=== PATIENT | male | born 1975 | race Caucasian/White ===

== ENCOUNTER → 2018-03-02 | Outpatient (CLI) | payer OTHER ==
[2018-03-02 13:27] LABS: BASOPHILS # (AUTO) 0.02 x10^3/uL (0-0.1); BASOPHILS % (AUTO) 0 % (0-1); EOSINOPHILS # (AUTO) 0.14 x10^3/uL (0-0.4); EOSINOPHILS % (AUTO) 2 % (1-7); LYMPHOCYTES # (AUTO) 1.91 x10^3/uL (1-3.4); LYMPHOCYTES % (AUTO) 28 % (22-44); MD NO; MEAN CORPUSCULAR HEMOGLOBIN 31.3 pg (27.5-34.5); MEAN CORPUSCULAR HGB CONC 33.7 g/dL (33.2-36.2); MEAN CORPUSCULAR VOLUME 93.2 fL (81-97); MEAN PLATELET VOLUME 6.8 fL (7.4-10.4); MONOCYTES # (AUTO) 0.76 x10^3/uL (0.2-0.8); MONOCYTES % (AUTO) 11 % (2-9); NEUTROPHILS # (AUTO) 3.91 x10^3/uL (1.8-6.8); NEUTROPHILS % (AUTO) 58 % (42-75); PLATELET COUNT 234 x10^3/uL (130-400); RED BLOOD COUNT 4.49 x10^6/uL (4.38-5.82); RED CELL DISTRIBUTION WIDTH 13.6 % (9.4-14.8)
[2018-03-02 13:30] LABS: HCT (SEDRATE) 41.8 % (39.2-51.8)
== END ==
LOC: LAB 13:10
PROVIDERS: ATTEND Orthopaedic Surgery
DX: S82.201 Unspecified fracture of shaft of right tibia (principal)
CPT/HCPCS: 36415; 85025; 85651; 86140

== ENCOUNTER → 2018-04-02 | Outpatient (CLI) | payer OTHER ==
[~2018-04-02] MED LIST: No meds per pt.
[2018-04-02 16:19] LABS: BASOPHILS # (AUTO) 0.03 x10^3/uL (0-0.1); BASOPHILS % (AUTO) 0 % (0-1); EOSINOPHILS # (AUTO) 0.17 x10^3/uL (0-0.4); EOSINOPHILS % (AUTO) 2 % (1-7); LYMPHOCYTES # (AUTO) 2.04 x10^3/uL (1-3.4); LYMPHOCYTES % (AUTO) 26 % (22-44); MD NO; MEAN CORPUSCULAR HEMOGLOBIN 31.9 pg (27.5-34.5); MEAN CORPUSCULAR VOLUME 93.7 fL (81-97); MEAN PLATELET VOLUME 7.1 fL (7.4-10.4); MONOCYTES # (AUTO) 0.78 x10^3/uL (0.2-0.8); MONOCYTES % (AUTO) 10 % (2-9); NEUTROPHILS # (AUTO) 4.84 x10^3/uL (1.8-6.8); NEUTROPHILS % (AUTO) 62 % (42-75); PLATELET COUNT 249 x10^3/uL (130-400); RED BLOOD COUNT 4.77 x10^6/uL (4.38-5.82); RED CELL DISTRIBUTION WIDTH 13.6 % (9.4-14.8)
[2018-04-02 16:20] LABS: HCT (SEDRATE) 44.6 % (39.2-51.8)
== END | disposition home or self-care (01) ==
LOC: STAR 15:24
PROVIDERS: ATTEND Orthopaedic Surgery
DX: Z01.818 Encounter for other preprocedural examination (principal); S82.201 Unspecified fracture of shaft of right tibia
CPT/HCPCS: 36415; 85025; 85651; 86140

== ENCOUNTER 2018-04-23 10:15 | Day surgery (SDC) | payer OTHER ==
[~2018-04-23] VITALS: Ht 175.3 cm; Wt 110.8 kg
[2018-04-23] MEDS ORDERED: LACTATED RINGERS 1,000 ML IV SCH (11:01)
[2018-04-23 11:06] VITALS: BP 144/90
[2018-04-23] MEDS ORDERED: MIDAZOLAM 1 MG/ML, 2ML ONE (12:13)
[2018-04-23] MEDS ORDERED: FENTANYL PF 250 MCG/5ML ONE (12:13)
[2018-04-23] MEDS ORDERED: CEFAZOLIN 1,000 MG ONE (12:34)
[2018-04-23] MEDS ORDERED: PROPOFOL 10 MG/ML, 20ML ONE (12:34)
[2018-04-23] MEDS ORDERED: DEXAMETHASONE 4 MG/ML, 1ML ONE (12:34)
[2018-04-23] MEDS ORDERED: ONDANSETRON 2MG/ML, 2ML ONE (12:34)
[2018-04-23] MEDS ORDERED: SUCCINYLCHOLINE 20 MG/ML, 10ML ONE (12:34)
[2018-04-23] MEDS ORDERED: LIDOCAINE PF 2%, 5ML ONE (12:34)
[2018-04-23] MEDS ORDERED: PROMETHAZINE 25 MG/ML, 1ML IV PRN (13:00)
[2018-04-23] MEDS ORDERED: OXYcodone 5 MG/5 ML ORAL.SOL UDC PO PRN (13:00)
[2018-04-23] MEDS ORDERED: ACETAMINOPHEN 325 MG TABLET PO PRN (13:00)
[2018-04-23] MEDS ORDERED: HYDROcodone/APAP 7.5-325MG/15ML UDC PO PRN (13:00)
[2018-04-23] MEDS ORDERED: ONDANSETRON ODT 8 MG PO PRN (13:00)
[2018-04-23] MEDS ORDERED: FENTANYL PF 100 MCG/2ML ONE ×2 (14:16→15:54)
[2018-04-23] MEDS ORDERED: MEPERIDINE/PF 50 MG/ML ONE (15:31)
[2018-04-23] MEDS ORDERED: OXYcodone 5 MG/5 ML ORAL.SOL UDC ONE (15:54)
[2018-04-23] MEDS: FENTANYL PF 100 MCG/2ML IV PRN ×2 (15:57→16:33)
[2018-04-23] MEDS ORDERED: morphine SULFATE 10 MG/ML, 1ML IVPush PRN (16:00)
[2018-04-23] MEDS ORDERED: OXYcodone/APAP 5/325MG TABLET PO PRN (16:00)
[2018-04-23] MEDS: MEPERIDINE/PF 25MG/0.5ML IVPush PRN ×2 (16:14→16:58)
[2018-04-23] MEDS ORDERED: MORPHINE SULFATE 4 MG/ML, 1ML ONE (16:18)
[2018-04-23] MEDS: MORPHINE SULFATE 4 MG/ML, 1ML IVPush PRN ×2 (16:40→16:49)
[2018-04-23] MEDS ORDERED: HYDROmorphone 2 MG/ML, 1ML ONE (17:03)
[2018-04-23] MEDS: HYDROmorphone 1 MG/ML, 1ML IV PRN ×2 (17:16→17:29)
[2018-04-23] MEDS ORDERED: PROMETHAZINE 25 MG/ML, 1ML ONE (20:19)
[2018-04-23] MEDS ORDERED: PROMETHAZINE 25 MG/ML, 1ML IM PRN (20:30)
[2018-04-23] MEDS: DOCUSATE 100 MG CAPSULE PO SCH (20:53)
[2018-04-23] MEDS: CEFAZOLIN PMX 2GM/50ML 50 ML IVPB SCH (21:00)
[2018-04-23] MEDS: HYDROcodone/APAP 5/325 TABLET PO PRN (23:45)
[2018-04-24 00:04] VITALS: BP 131/82
[2018-04-24] MEDS ORDERED: OXYC-307 PO (00:15)
[2018-04-24 05:17] VITALS: BP 123/79
[2018-04-24] MEDS: CEFAZOLIN PMX 2GM/50ML 50 ML IVPB SCH (05:22)
[2018-04-24] MEDS ORDERED: ENOXAPARIN 40 MG/0.4 ML SQ SCH (06:00)
[2018-04-24] MEDS: HYDROcodone/APAP 5/325 TABLET PO PRN (08:05)
[2018-04-24] MEDS: DOCUSATE 100 MG CAPSULE PO SCH (08:05)
[2018-04-24 08:14] VITALS: BP 130/64
[2018-04-24 09:49] VITALS: BP 112/76
== END 2018-04-24 10:08 | disposition home or self-care (01) ==
LOC: OUT 10:15 → ORIP 15:43 → OUT 15:43 → ORIP 15:50 → 4NOR 18:09 → DCLOUNGE 04-24 09:56
PROVIDERS: ADMIT Orthopaedic Surgery; ATTEND Orthopaedic Surgery
DX: S82.201 Unspecified fracture of shaft of right tibia (principal); S82.401 Unspecified fracture of shaft of right fibula; X58.XXXD Exposure to other specified factors, subsequent encounter; Y92.89 Other specified places as the place of occurrence of the external cause; Y93.89 Activity, other specified; Y99.8 Other external cause status
CPT/HCPCS: 20680; 73590; 76001; 87070; 87075; 87205; 96365; 96372; 96375; C1713; G0378; J0330; J0690; J1100; J1170; J1650; J2175; J2250; J2270; J2405; J2550; J2704; J3010; J7120

== ENCOUNTER 2019-12-29 05:29 | Emergency (ER) | payer OTHER ==
[~2019-12-29] VITALS: Ht 175.3 cm; Wt 105.7 kg
[~2019-12-29 05:29] MED LIST changes: +OXYC-307 PO
--- NOTE | 2019-12-29 05:49 | NUR ---
PT TO ED WITH RIGHT RING FINGER PAIN POST "JAM" YESTERDAY AFTERNOON. PT ABLE TO MOVE FINGER WITH SOME DISCOMFORT. PT DENIES ANY FURTHER NEEDS AT THIS TIME. CALL LIGHT WITHIN REACH.
[2019-12-29 06:27] VITALS: BP 123/86
--- NOTE | 2019-12-29 06:28 | NUR ---
PT RESTING IN ROOM. DENIES ANY NEEDS AT THIS TIME. UPDATED ON POC. CALL LIGHT WITHIN REACH.
== END 2019-12-29 06:44 | disposition home or self-care (01) ==
LOC: ED 06:36
DX: S60.041A Contusion of right ring finger without damage to nail, initial encounter (principal); W23.1XXA Caught, crushed, jammed, or pinched between stationary objects, initial encounter; Y93.89 Activity, other specified; Y92.009 Unspecified place in unspecified non-institutional (private) residence as the place of occurrence of the external cause; Y99.8 Other external cause status
CPT/HCPCS: 29130; 99283